=== PATIENT | female | born 1990 | race American Indian/Alaskan Native ===

== ENCOUNTER 2020-10-10 09:33 | Emergency (ER) | payer MEDICAID ==
[2020-10-10 10:00] VITALS: BP 121/70
--- NOTE | 2020-10-10 10:01 | Event Note ---
ED Screening Note ED Screening Note: PCP REFERRED TO VASCULAR PT STATES SHES NOT BEEN ABLE TO REACH THEM; NOT RETURNING CALLS PCP TOLD HER TO COME TO ER TO RO DVT LLE This initial assessment/diagnostic orders/clinical plan/treatment(s) is/are subject to change based on patients health status, clinical progression and re- assessment by fellow clinical providers in the ED. Further treatment and workup at subsequent clinical providers discretion. Patient/guardian urged not to elope from the ED as their condition may be serious if not clinically assessed and managed. Initial orders include: US RO DVT
--- NOTE | 2020-10-10 11:32 | Vascular Lab Report ---
DUPLEX DOPPLER LOWER EXTREMITY VEINS, LEFT INDICATION: PAIN LLE. TECHNIQUE: Duplex doppler imaging was performed through the veins of the left lower extremity using venous compression and other maneuvers. COMPARISON: No relevant prior imaging study available. FINDINGS: Left Common femoral vein: Negative. Left Superficial femoral vein: Negative. Left Popliteal vein: Negative. Left Calf veins: Negative. Additional findings: None. IMPRESSION: No sonographic evidence for DVT in the left lower extremity. Signer Name: Murphy Richards Jr, MD Signed: 10/10/2020 11:28 AM Workstation Name: [id number]
--- NOTE | 2020-10-10 11:40 | Emergency Department Report ---
ED Lower Extremity HPI - General Chief Complaint: Extremity Problem,Nontraumatic Stated Complaint: POSS BLOOD CLOG LT LEG Time Seen by Provider: 10/10/20 10:02 Source: patient Mode of arrival: Ambulatory Limitations: No Limitations - History of Present Illness Initial Comments: Patient is a 30-year-old that comes to the emergency room from her primary c are's office where she was seen 2 days ago and they were concerned for DVT. They referred her to vascular surgery but vascular has not returned her call in 48 hours so she comes to the ER. She is complaining of left lower extremity pain at the calf. There is no swelling. She has a good DP and PT bilaterally. She has full range of motion of the lower leg. She is ambulatory and nontoxic on exam. Patient denies chest pain or shortness of breath. She has no history of DVT. She is not on hormones. She is not obese. She is not sedentary. -: Gradual, days(s) Type of Injury: other (No trauma) Severity: mild Severity scale (0 -10): 4 Improves With: nothing Worsens With: nothing - Related Data Allergies Allergy/AdvReac Type Severity Reaction Status Date / Time No Known Allergies Allergy Verified 10/10/20 09:58 ED Review of Systems ROS: Stated complaint: POSS BLOOD CLOG LT LEG Other details as noted in HPI Comment: All other systems reviewed and negative ED Past Medical Hx - Past Medical History Previous Medical History?: No - Surgical History Past Surgical History?: No - Family History Family history: no significant - Social History Smoking Status: Never Smoker Substance Use Type: None ED Physical Exam - General Limitations: No Limitations General appearance: alert, in no apparent distress - Head Head exam: Present: atraumatic, normocephalic - Eye Eye exam: Present: normal appearance - ENT ENT exam: Present: mucous membranes moist - Neck Neck exam: Present: normal inspection - Respiratory Respiratory exam: Present: normal lung sounds bilaterally. Absent: respiratory distress - Cardiovascular Cardiovascular Exam: Present: regular rate, normal rhythm. Absent: systolic murmur, diastolic murmur, rubs, gallop - GI/Abdominal GI/Abdominal exam: Present: soft, normal bowel sounds - Extremities Exam Extremities exam: Present: normal inspection - Back Exam Back exam: Present: normal inspection - Neurological Exam Neurological exam: Present: alert, oriented X3 - Psychiatric Psychiatric exam: Present: normal affect, normal mood - Skin Skin exam: Present: warm, dry, intact, normal color. Absent: rash ED Course Vital Signs 10/10/20 09:59 Temperature 98.7 F Pulse Rate 83 Respiratory 16 Rate Blood Pressure 121/70 O2 Sat by Pulse 99 Oximetry ED Lower Extremity MDM - Radiology Data Radiology results: report reviewed, image reviewed no dvt - Medical Decision Making Ultrasound is negative for DVT. Patient is not tachycardic, hypotensive or hypoxic. She has no chest pain or shortness of breath. Patient states that during her ER visit the vascular doctors did in fact call her back and she has an appointment. Patient being discharged home with discharge plan of care including vascular follow-up. I have asked her to take aspirin 81 mg daily. I have also given her a copy of her ultrasound images today to take to her vascular appointment. Patient verbalizes understanding of discharge plan of care Vital Signs 10/10/20 09:59 Temperature 98.7 F Pulse Rate 83 Respiratory 16 Rate Blood Pressure 121/70 O2 Sat by Pulse 99 Oximetry - Differential Diagnosis ro dvt Critical care attestation.: If time is entered above; I have spent that time in minutes in the direct care of this critically ill patient, excluding procedure time. ED Disposition Clinical Impression: Leg pain, left Disposition: DC-01 TO HOME OR SELFCARE Is pt being admited?: No Does the pt Need Aspirin: No Condition: Stable Additional Instructions: follow up with vascular MD as we discussed take your disc with images with you stay well hydrated with water take a baby aspirin every day Referrals: DIEGO DAVID MD [Staff Physician] - 3-5 Days ELO EDMOND DO [Staff Physician] - 3-5 Days Time of Disposition: 11:38
== END 2020-10-10 11:40 | disposition home or self-care (01) ==
LOC: ED 09:33
DX: M79.605 Pain in left leg (principal)